=== PATIENT | male | born 2005 | race Caucasian/White ===

== ENCOUNTER → 2024-08-31 13:30 | Outpatient (BNV) | payer BC, SELFPAY | PROVIDERS: PCP Pediatrics; Visit Provider Radiology Diagnostic Radiology | DX: R51.9 Headache, unspecified (principal) | CPT/HCPCS: 70481 ==

== ENCOUNTER → 2024-08-31 13:34 | Outpatient (BNV) | payer BC, SELFPAY | PROVIDERS: Emergency Provider Emergency Medicine Emergency Medical Services; PCP Pediatrics; Visit Provider Internal Medicine | DX: R00.0 Tachycardia, unspecified (principal) | CPT/HCPCS: 93010 ==